=== PATIENT | female | born 1970 | race Two or more races ===

== ENCOUNTER 2024-11-16 10:00 | Outpatient (RCR) | payer MEDICAID, SELFPAY ==
--- NOTE | 2024-11-09 09:39 | PTNOTE_ITS ---
PT OP Initial Eval Patient Information Outpatient Physical Therapy Treatment Date: 11/09/24 Visit Reasons: Pain in left knee Medical Diagnosis: M25.562 Treatment Dx #1: L knee pain Start of Care: 11/09/24 Date of Onset: 3 months ago Smoking Status Smoking Status: Never smoker Initial Assessment Subjective: Pt is 54 yr old maltese speaking female who c/o L knee pain since tripping coming off stairs and catching herself about 3 months ago. She is unable to extend the L knee in sitting and has difficulty getting up after sitting. PMH: B knee surgeries x2, R knee A/S in 2021 Imaging: none of L knee Pt goal: to extend the knee straight, to be able to do exercise Objective: L knee ArOM: Strength: Flexion: 120 deg 3+/5 Extension: -5 deg 3-/5 SLR: 20 deg with pain Patella compression: positive Mary's: positive Assessment: Pt presents with L quad weakness consistent with patellofemoral pain. Pt requires skilled therapy to meet goals and has fair rehab potential. Short Term and Senior Living Goals 1. Independent with HEP ? 2. Improved quad strength to 4/5 to fully extend knee in sitting ? 3. Pt will squat to 75% depth x10 without increase in knee pain ? 4. Pt will ascend/descend 1 flight of stairs with <=3/10 L knee pain Treatment Plan 1. Manual therapy ? 2. Therex ? 3. Modalities as indicated, MHP, ice, estim Frequency and Duration: 1-2x a week for 12 visits Certification Dates: 11/09/24 to 02/05/25 Procedure Charges OP PT Eval Mod Complex 30 minutes: Yes
--- NOTE | 2024-11-16 10:52 | PT.ODAYNRPT ---
PT Outpatient Daily Note OP Daily Note Outpatient Physical Therapy Treatment Date: 11/16/24 Visit Reasons: Pain in left knee Subjective: Pt reports L knee is painful and notices she has been having more pain on the back of the knee. Objective: Please see flow sheet for ther ex list. Assessment: Pt demonstrates knee extension lag, poor tolerance with heel prop exercise due to pain response. Plan: Continue with POC. Length of Time (minutes) of Treatment: 30 Minutes Procedure Charges Therapeutic Exercise 30 minutes: Yes
== END 2024-11-23 23:59 | disposition home or self-care (01) ==
LOC: CPTX 10:00
PROVIDERS: PCP Nurse Practitioner Family; Referring Provider Nurse Practitioner Family; Visit Provider Nurse Practitioner Family
DX: M25.562 Pain in left knee (principal); R53.1 Weakness
CPT/HCPCS: 97110; 97162

== ENCOUNTER → 2024-12-07 | Outpatient (CLI) | payer MEDICAID, SELFPAY ==
--- NOTE | 2024-12-07 11:51 | XR_ITS ---
Examination: Knee, left , 3 views Technique: Knee AP, lateral, oblique 3 views Date and time of exam: December 07, 2019 5008 hours INDICATIONS: Left knee pain difficulty with extension 5 years FINDINGS: Moderate to advanced narrowing medial joint space Prominent osteopenia No fracture dislocation Small to moderate knee effusion IMPRESSION: Moderate to advanced narrowing medial joint space
== END | disposition home or self-care (01) ==
PROVIDERS: PCP Nurse Practitioner Primary Care; Referring Provider Orthopaedic Surgery; Visit Provider Orthopaedic Surgery
DX: M25.862 Other specified joint disorders, left knee (principal)
CPT/HCPCS: 73562

== ENCOUNTER 2024-12-22 10:30 | Outpatient (RCR) | payer MEDICAID, SELFPAY ==
--- NOTE | 2024-11-26 14:07 | PT.ODAYNRPT ---
PT Outpatient Daily Note OP Daily Note Outpatient Physical Therapy Treatment Date: 11/26/24 Visit Reasons: Pain in Left knee Subjective: Pt reports knee felt a little better after last session. Objective: Please see flow sheet for ther ex list. Assessment: Progression of interventions completed with good tolerance. Plan: Continue with POC. Length of Time (minutes) of Treatment: 30 Minutes Procedure Charges Therapeutic Exercise 30 minutes: Yes
--- NOTE | 2024-11-29 14:27 | PT.ODAYNRPT ---
PT Outpatient Daily Note OP Daily Note Outpatient Physical Therapy Treatment Date: 11/29/24 Visit Reasons: Pain in Left knee Subjective: Pt reports L knee is doing better, notices she has been having less pain and less often. Objective: Please see flow sheet for ther ex list. Assessment: Pt presents in clinic with no pain allowing for intervention progression. Plan: Continue with POC. Length of Time (minutes) of Treatment: 30 Minutes Procedure Charges Therapeutic Exercise 30 minutes: Yes
--- NOTE | 2024-12-07 13:21 | PT.ODAYNRPT ---
PT Outpatient Daily Note OP Daily Note Outpatient Physical Therapy Treatment Date: 12/07/24 Visit Reasons: Pain in Left knee Subjective: Less L knee pain since starting therapy Objective: See F/S for therex Assessment: Low tissue irritability with therex Plan: Continue per POC Length of Time (minutes) of Treatment: 30 Minutes Procedure Charges Therapeutic Exercise 30 minutes: Yes
--- NOTE | 2024-12-15 11:34 | PT.ODAYNRPT ---
PT Outpatient Daily Note OP Daily Note Outpatient Physical Therapy Treatment Date: 12/15/24 Visit Reasons: Pain in Left knee Subjective: Less L knee pain since starting therapy Objective: See F/S for therex Assessment: Low tissue irritability with therex but difficulty extending knee in sitting. She can squat but weak quads in sitting. Plan: Continue per POC Length of Time (minutes) of Treatment: 30 Minutes Procedure Charges Therapeutic Exercise 30 minutes: Yes
--- NOTE | 2024-12-22 10:51 | PT.ODAYNRPT ---
PT Outpatient Daily Note OP Daily Note Outpatient Physical Therapy Treatment Date: 12/22/24 Visit Reasons: Pain in Left knee Subjective: Pt reports L knee is doing a little better, had X-ray done and came out negative. As per pt they will be ordering MRI soon. Objective: Please see flow sheet for ther ex list. Assessment: Pt instructed on step up exercise performed with no MUD GRINDER and no pain. Plan: Continue with POC.
== END 2024-12-24 23:59 | disposition home or self-care (01) ==
LOC: CPTX 10:30
PROVIDERS: PCP Nurse Practitioner Family; Referring Provider Nurse Practitioner Family; Visit Provider Nurse Practitioner Family
DX: M25.562 Pain in left knee (principal); R53.1 Weakness
CPT/HCPCS: 97110

== ENCOUNTER 2025-01-18 10:30 | Outpatient (RCR) | payer MEDICAID, SELFPAY ==
--- NOTE | 2024-12-28 13:37 | PT.ODAYNRPT ---
PT Outpatient Daily Note OP Daily Note Outpatient Physical Therapy Treatment Date: 12/28/24 Visit Reasons: Pain in left knee Subjective: Less L knee pain since starting therapy Objective: See F/S for therex Assessment: Low tissue irritability with therex but difficulty extending knee in sitting. She can squat but weak quads in sitting. Plan: Continue per POC Length of Time (minutes) of Treatment: 30 Minutes Procedure Charges Therapeutic Exercise 30 minutes: Yes
--- NOTE | 2025-01-11 10:40 | PT.ODAYNRPT ---
PT Outpatient Daily Note OP Daily Note Outpatient Physical Therapy Treatment Date: 01/11/25 Visit Reasons: Pain in left knee Subjective: Less L knee pain since starting therapy Objective: See F/S for therex Assessment: Low tissue irritability with therex with step ups. She can squat with better strength. Plan: Continue per POC Length of Time (minutes) of Treatment: 30 Minutes Procedure Charges Therapeutic Exercise 30 minutes: Yes
--- NOTE | 2025-01-18 11:31 | PT.ODAYNRPT ---
PT Outpatient Daily Note OP Daily Note Outpatient Physical Therapy Treatment Date: 01/18/25 Visit Reasons: Pain in left knee Subjective: Pt reports L knee pain has been improving. Objective: Please see flow sheet for ther ex list. Assessment: Pt demonstrates good control with step up exercise, minimal to no [facility] indicatigng progress. Plan: Continue with POC. Length of Time (minutes) of Treatment: 30 Minutes Procedure Charges Therapeutic Exercise 30 minutes: Yes
== END 2025-01-21 23:59 | disposition home or self-care (01) ==
LOC: CPTX 10:30
PROVIDERS: PCP Nurse Practitioner Family; Referring Provider Nurse Practitioner Family; Visit Provider Nurse Practitioner Family
DX: M25.562 Pain in left knee (principal); R53.1 Weakness
CPT/HCPCS: 97110

== ENCOUNTER 2025-02-15 10:30 | Outpatient (RCR) | payer MEDICAID, SELFPAY ==
--- NOTE | 2025-01-25 10:59 | PT.ODAYNRPT ---
PT Outpatient Daily Note OP Daily Note Outpatient Physical Therapy Treatment Date: 01/25/25 Visit Reasons: Pain in left knee Subjective: Pt reports L knee pain has been improving and feels 1/10 during therapy Objective: See F/S for therex Assessment: Pt has improved L quad strength to extend knee in sitting to meet that goal. Plan: Continue per POC. Length of Time (minutes) of Treatment: 30 Minutes Procedure Charges Therapeutic Exercise 30 minutes: Yes
--- NOTE | 2025-02-01 11:53 | PT.ODAYNRPT ---
PT Outpatient Daily Note OP Daily Note Outpatient Physical Therapy Treatment Date: 02/01/25 Visit Reasons: Pain in left knee Subjective: Pt reports L knee pain has been improving and feels 1/10 during therapy but it's not completely better Objective: See F/S for therex Assessment: Pt has improved L quad strength to extend knee in sitting to meet that goal. Plan: Reassess Length of Time (minutes) of Treatment: 30 Minutes Procedure Charges Therapeutic Exercise 30 minutes: Yes
--- NOTE | 2025-02-15 16:11 | PT.ODS1RPT ---
PT OP Progress/Discharge Note Date of Service: 02/15/25 Progress Note/DC Note Progress Note/Discharge Note: DC Note Patient Information Visit Reasons: Pain in left knee Service Continue Service or Discharge: Discharge Discharge Date: 02/15/25 Status Subjective: Pt reports L knee pain has been improving with therapy but it's not completely better. It still hurts and she points to the superior kneecap and lateral joint line. Objective: See F/S for therex L knee ArOM: Flexion: 120 deg Extension: -3 deg TTP: lateral patella border Patella compression: positive Quad strength: 3/5 Assessment: Pt has attended / visits with limited progress with therapy goals due to continued patella compression sensitivity which limits loading the knee and quad strength. She has good function but continued pain which is consistent with patellofemoral pain. Pt has slightly improved L quad strength to extend knee in sitting to meet that goal. Pt would benefit from further diagnostic imaging such as MRI of L knee. Plan: D/C with HEP Procedure Charges Therapeutic Exercise 30 minutes: Yes
== END 2025-02-21 23:59 | disposition home or self-care (01) ==
LOC: CPTX 10:30
PROVIDERS: PCP Nurse Practitioner Family; Referring Provider Nurse Practitioner Family; Visit Provider Nurse Practitioner Family
DX: M25.562 Pain in left knee (principal); R53.1 Weakness
CPT/HCPCS: 97110